=== PATIENT | female | born 1980 | race Caucasian/White ===

== ENCOUNTER 2018-10-31 07:41 | Emergency (ER) | payer MEDICAID ==
[~2018-10-31] VITALS: Ht 165.1 cm; Wt 89.1 kg
[2018-10-31 07:45] VITALS: Ht 165.1 cm; Wt 89.1 kg
[2018-10-31 08:39] VITALS: BP 106/64
== END 2018-10-31 08:39 | disposition home or self-care (01) ==
LOC: ED 07:41
DX: N39.0 Urinary tract infection, site not specified (principal); K64.9 Unspecified hemorrhoids
CPT/HCPCS: J1885

== ENCOUNTER 2019-10-17 16:43 | Emergency (ER) | payer MEDICAID ==
[~2019-10-17] VITALS: Ht 165.1 cm; Wt 88.0 kg
[2019-10-17 17:21] VITALS: BP 114/75; Ht 165.1 cm; Wt 88.0 kg
== END 2019-10-17 18:30 | disposition home or self-care (01) ==
LOC: ED 16:43
DX: N39.0 Urinary tract infection, site not specified (principal)

== ENCOUNTER 2019-10-23 09:53 | Emergency (ER) | payer MEDICAID ==
[~2019-10-23] VITALS: Ht 167.6 cm; Wt 86.2 kg
[2019-10-23 10:12] VITALS: Ht 167.6 cm; Wt 86.2 kg
[2019-10-23 14:19] LABS: microscopic required? YES; urine erythrocyte NEGATIVE (NEGATIVE)
[2019-10-23 15:23] VITALS: BP 118/57
== END 2019-10-23 15:23 | disposition home or self-care (01) ==
LOC: ED 09:53
PROVIDERS: Emergency Medicine
DX: R10.2 Pelvic and perineal pain (principal); R10.30 Lower abdominal pain, unspecified

== ENCOUNTER 2020-01-31 17:50 | Emergency (ER) | payer MEDICAID ==
[~2020-01-31] VITALS: Ht 165.1 cm; Wt 74.8 kg
[2020-01-31 18:06] VITALS: Ht 165.1 cm; Wt 74.8 kg
[2020-01-31 20:46] LABS: BASOPHIL % 0.3 % (0-2); PLATELET COUNT 396 x10^3mcL (130-400)
[2020-01-31 20:49] LABS: RED CELL DISTRIBUTION WIDTH 19.7 % (11.5-14.5)
[2020-01-31 20:59] LABS: CALCIUM 8.7 mg/dL (8.5-10.1); CHLORIDE SERUM 101 mmol/L (98-107); CREATININE SERUM 0.8 mg/dL (0.6-1.0); GFR1 > 60 mL/min; GLUCOSE SERUM 89 mg/dL (74-106); POTASSIUM SERUM 3.2 mmol/L (3.5-5.1); SODIUM SERUM 137 mmol/L (136-145)
[2020-01-31 21:04] LABS: ALKALINE PHOSPHATASE 102 U/L (46-116); ALT/SGPT 26 U/L (14-59); AMYLASE 35 U/L (25-115); AST/SGOT 57 U/L (15-37); BILIRUBIN TOTAL 0.4 mg/dL (0.20-1.00); LIPASE 73 IU/L (73-393); TOTAL PROTEIN, SERUM 7.1 g/dL (6.4-8.2)
[2020-01-31 21:05] LABS: ALBUMIN 2.4 g/dL (3.4-5.0)
[2020-02-01 00:50] VITALS: BP 116/73
== END 2020-02-01 00:50 | disposition home or self-care (01) ==
LOC: ED 17:50
PROVIDERS: Emergency Medicine
DX: K57.32 Diverticulitis of large intestine without perforation or abscess without bleeding (principal); R22.41 Localized swelling, mass and lump, right lower limb; M79.604 Pain in right leg; R16.0 Hepatomegaly, not elsewhere classified
CPT/HCPCS: J1885; Q0092; Q9967

== ENCOUNTER 2020-02-11 20:59 | Emergency (ER) | payer MEDICAID, SELFPAY ==
[~2020-02-11] VITALS: Ht 167.6 cm; Wt 74.2 kg
[2020-02-11 21:05] VITALS: Ht 167.6 cm; Wt 74.2 kg
[2020-02-11 21:41] LABS: BASOPHIL % 0.7 % (0-2)
[2020-02-11 21:46] LABS: RED CELL DISTRIBUTION WIDTH 19.9 % (11.5-14.5)
[2020-02-11 21:50] LABS: PLATELET COUNT 823 x10^3mcL (130-400)
[2020-02-11 21:52] LABS: CALCIUM 8.9 mg/dL (8.5-10.1); CHLORIDE SERUM 101 mmol/L (98-107); GFR1 > 60 mL/min; GLUCOSE SERUM 102 mg/dL (74-106); POTASSIUM SERUM 3.3 mmol/L (3.5-5.1); SODIUM SERUM 138 mmol/L (136-145)
[2020-02-11 21:56] LABS: ALKALINE PHOSPHATASE 83 U/L (46-116); ALT/SGPT 23 U/L (14-59); AST/SGOT 53 U/L (15-37); BILIRUBIN TOTAL 0.3 mg/dL (0.20-1.00); TOTAL PROTEIN, SERUM 7.6 g/dL (6.4-8.2)
[2020-02-11 21:57] LABS: ALBUMIN 2.8 g/dL (3.4-5.0)
[2020-02-11 23:28] LABS: microscopic required? NO
[2020-02-11 23:54] LABS: urine erythrocyte NEGATIVE (NEGATIVE)
[2020-02-12 00:36] LABS: C REACTIVE PROTEIN 2.4 mg/dL (<=0.9)
[2020-02-12 02:41] VITALS: BP 107/64
== END 2020-02-12 02:41 | disposition home or self-care (01) ==
LOC: ED 20:59
PROVIDERS: Emergency Medicine
DX: F41.9 Anxiety disorder, unspecified (principal); R07.89 Other chest pain; R10.13 Epigastric pain
CPT/HCPCS: 83880; 85378; 87804; J2270; J7030; Q0092; U0003-CS